=== PATIENT | male | born 1955 | race African-American/Black ===

== ENCOUNTER 2017-01-15 10:43 | Inpatient (IN) ==
[2017-01-15] MEDS ORDERED: D5 1/2 NS 1,000 ML IV SCH (12:00)
[2017-01-15 12:37] LABS: INR 1.05; PROTIME 11.1 Seconds (9.2-11.7)
[2017-01-15] MEDS ORDERED: TYLENOL PO PRN (12:38)
[2017-01-15] MEDS ORDERED: ZOFRAN IV PRN (12:38)
[2017-01-15 12:56] LABS: ALBUMIN 4.1 g/dL (3.5-5.0); CALCIUM 9.9 mg/dL (8.8-10.2); POTASSIUM 3.8 mmol/L (3.5-5.1); TOTAL BILIRUBIN 1.92 mg/dL (0.20-1.00)
[2017-01-15 13:02] LABS: FREE T4 1.66 ng/dL (0.93-1.70)
[2017-01-15] MEDS: D5 1/2 NS 1,000 ML IV SCH (13:14)
--- NOTE | 2017-01-15 13:27 | Diag Imaging Result Document ---
PROCEDURE NAME: CHEST-2 VIEWS - 01/15/2017 TWO VIEWS OF THE CHEST: FINDINGS: There is a pacemaker with leads in the right atrium and ventricle. There are granulomata in the right lower lobe. Compared to 01/11/2017, there has been no significant change. Compared to 10/01/2016, the inspiration is somewhat better. IMPRESSION: Stable chest.
[2017-01-15] MEDS: DUONEB (A & A) INH PRN ×2 (15:33→20:15)
--- NOTE | 2017-01-15 16:13 | HISTORY AND PHYSICAL ---
CHIEF COMPLAINT: Direct admit from Dr. Esteban Muro's office for fluid volume depletion and hypotension. HISTORY OF PRESENT ILLNESS: Mr. Elizondo is a 61-year-old, -[place] male, who has a past medical history of systolic heart failure with an EF of around 20%-30%, history of cirrhosis of the liver, hepatitis C status post curative treatment, alcohol dependence, nicotine dependence; the patient has cut back to a pack per week, chronic kidney disease; last known baseline creatinine around 1.4 x 1.7 and history of paroxysmal atrial fibrillation. Patient is a direct admit from Dr. Muro's office for fluid volume depletion and hypotension. The patient was last admitted to our service back in September 2016 for what they thought was acute cholecystitis, which was ruled out by a HIDA scan. He was to follow up with Dr. Tyson outpatient for an EGD. The patient also reported to the ER on 01/11/2017 after sustaining a fall with right-sided rib pain. He was getting out of the tub when he slipped and fell on his right sign. He was diagnosed with rib fractures and sent home. However, the x-ray showed no injury. Patient reported to Dr. Esteban Muro's office with 2 weeks of feeling dizziness, no appetite, and about a 40 pound weight loss. He states that he has not been eating or drinking much. He states that the most he had been drinking was about half a cup of ice over the last few days. His diet had been bland, occasional grilled chicken, fried chicken, or baked chicken. Other than that, he has not been eating very much. He reported dizziness upon standing and dizziness with sitting up from a lying position and when standing up from a sitting position. Also, he reported no bowel movement for over a week. He also takes a "fluid pill" 1-/2 b.i.d. The patient reports no shortness of breath. No chest pain. No nausea, vomiting, and diarrhea. No palpitations. The patient was also recently seen by Dr. Esteban Muro a few weeks ago. He was edematous, however, now he is completely free of any edema and, as mentioned before, he has had about a 40 pound weight loss in 2 weeks. So, the patient is being directly admitted to [facility] for hypotension and volume depletion. PAST MEDICAL HISTORY: 1. Systolic heart failure with unknown EF of 20%-25%. Followed by Dr. Esteban Muro. 2. Nonischemic cardiomyopathy. 3. Type 2 diabetes. 4. COPD. 5. Hypertension. 6. Hyperlipidemia. 7. History of hepatitis C status post curative treatment. 8. Cirrhosis of the liver. 9. Alcohol dependence in full sustained remission. 10. Nicotine dependence. 11. Chronic kidney disease with a baseline creatinine of 1.4 x 1.7. 12. Paroxysmal atrial fibrillation history. PAST SURGICAL HISTORY: Bilateral hip arthroplasty and permanent pacemaker, AICD placement. SOCIAL HISTORY: The patient smokes 1 pack of cigarettes per day. He quit drinking alcohol 6 years ago. He does have a history of crack cocaine use but quit that around 30-40 years ago. He is . FAMILY HISTORY: Reviewed. Noncontributory. ALLERGIES: Penicillin, JHONATAN inhibitors, and ibuprofen. HOME MEDICATIONS: Have not been reconciled, however, on his last discharge the patient was discharged 1. Spironolactone 25 mg p.o. q.a.m. 2. Prilosec 20 mg p.o. daily. 3. Metformin a 1000 mg p.o. b.i.d. 4. Losartan 100 mg p.o. daily. 5. NovoLog 70/30, 20 units q.a.m. and 15 units at bedtime. 6. Lasix 80 mg p.o. b.i.d. 7. Flonase 2 sprays days daily as needed. 8. Ferrous sulfate 325 mg p.o. daily. 9. Vitamin B12 1000 mcg p.o. daily. 10. Bentyl 10 mg p.o. 4 times a day. However, this was a medication reconciled on 10/05/2016. This may not be a complete list. REVIEW OF SYSTEMS: Ten-point review of systems completely negative except for those mentioned in the HPI. PHYSICAL EXAMINATION: VITAL SIGNS: Have not been taken. GENERAL: This is a pleasant -[place] male, who is lying in bed, in no acute distress. HEENT: Atraumatic, normocephalic. PERRLA. NECK: Supple. Trachea midline. CV: No murmurs, gallops, or rubs noted. S1-S2 appreciated. ABDOMEN: Soft, nontender, nondistended. Positive bowel sounds 4 quadrants. EXTREMITIES: Negative for edema. NEUROLOGIC: Patient is alert and oriented. He follows commands. No focal deficits noted. DIAGNOSTIC DATA WELL LABORATORY DATA: Have been ordered and pending. EKG pending. ASSESSMENT AND PLAN: 1. Hypotension. Continue with D5 half-normal saline at 80 mL/hour. Routine vital signs with strict I's and O's. 2. Volume depletion. Continue with IV fluids. The patient up with assistance. Strict I's and O's. 3. Systolic heart failure with unknown EF of 20%-30% not in exacerbation at this time. 4. Chronic obstructive pulmonary disease. Will do DuoNebs p.r.n. 5. Type 2 diabetes. We will do fingerstick blood sugars as well as place on a sliding scale. 6. Hypertension. The patient is actually hypotensive. We will hold all medications. 7. Hepatitis C history with status post curative treatment per patient report. 8. Cirrhosis of the liver. 9. Alcohol dependence, in full sustained remission. 10. Nicotine dependence. The patient was educated on smoking cessation as well as the means to quit. He is, however, down to a pack per week. 11. Chronic kidney disease with a baseline creatinine of 1.4-1.7. 12. Paroxysmal atrial fibrillation history. Will monitor on telemetry on CIC. 13. Further recommendation to follow physician evaluation, hospital course, laboratory and diagnostic data. Dictated by ALEXX Li for Landon Corrales MD cc: MD Ashley Torrez MD
--- NOTE | 2017-01-15 16:23 | EKG Report ---
Test Performed on : 01/15/2017 1:22:21 PM Test Reason : CAD, hypotension Blood Pressure : / mmHG Vent. Rate : 058 BPM Atrial Rate : 058 BPM P-R Int : 134 ms QRS Dur : 170 ms QT Int : 524 ms P-R-T Axes : 052 -82 077 degrees QTc Int : 514 ms Atrial-sensed ventricular-paced rhythm Biventricular pacemaker detected Abnormal ECG When compared with ECG of 11-JAN-2017 08:47, No significant change was found Confirmed by Amina GREGORY, Jatin Owusu ([id number]) on 01/17/2017 9:53:44 AM
[2017-01-15 17:02] LABS: URINE MICRO REVIEW NEEDED? NO; URINE SOURCE CLEAN CATCH
[2017-01-15 17:06] LABS: BILIRUBIN URINE NEGATIVE (NEGATIVE); BLOOD URINE NEGATIVE (NEGATIVE); COLOR YELLOW; GLUCOSE URINE NEGATIVE (NEGATIVE); LEUKOCYTES URINE NEGATIVE (NEGATIVE); NITRITE URINE NEGATIVE (NEGATIVE); PH URINE 6.5; PROTEIN URINE NEGATIVE (NEGATIVE); SP GRAVITY URINE 1.011; TURBIDITY URINE CLEAR (CLEAR); UR EPITHELIAL CELLS <10 /HPF (<10); URINE BACTERIA NEGATIVE /HPF; URINE RBC <10 /HPF (<10); URINE WBC <10 /HPF (<10); UROBILINOGEN URINE 2 mg/dL (NORMAL)
[2017-01-15] MEDS: HUMULIN R SUBQ SCH ×2 (17:07→20:51)
[2017-01-16] MEDS: D5 1/2 NS 1,000 ML IV SCH ×3 (03:05→21:27)
[2017-01-16] MEDS: DUONEB (A & A) INH PRN ×6 (04:15→23:07)
[2017-01-16] MEDS: NORCO-5 PO PRN ×2 (04:50→18:04)
[2017-01-16] MEDS: PRILOSEC PO SCH ×2 (04:50→06:02)
[2017-01-16 05:36] LABS: HEMOGLOBIN 10.9 g/dL (14.0-18.0); MCH 28.3 PG (27-31); MCV 85.7 FL (81-99); MPV 11.4 FL (7.4-10.4); RBC 3.85 XMIL (4.7-6.1)
[2017-01-16] MEDS: HUMULIN R SUBQ SCH ×4 (06:02→21:16)
[2017-01-16 06:07] LABS: CALCIUM 9.1 mg/dL (8.8-10.2); MAGNESIUM 1.8 mg/dL (1.5-2.7)
[2017-01-16] MEDS: ASPIRIN EC PO SCH (08:31)
[2017-01-16] MEDS: BENTYL PO SCH ×4 (08:31→21:24)
[2017-01-16] MEDS: SYNTHROID PO SCH (08:31)
[2017-01-16] MEDS: PROTONIX PO SCH ×2 (08:31→18:00)
[2017-01-16] MEDS: HEPARIN SUBQ SCH ×2 (10:25→21:24)
--- NOTE | 2017-01-16 11:02 | PROGRESS NOTE ---
DATE: 01/16/2017 SUBJECTIVE: This patient states that he is feeling much better. He is tolerating p.o. He is not complaining of shortness of breath or chest pain. He denies nausea, vomiting, diarrhea, or constipation. OBJECTIVE: Vital Signs: Temperature 97.9 degrees, pulse is 67, respiratory rate 15, O2 saturation 97% on room air and blood pressure 115/52. HEENT: Head normocephalic. No trauma. PERRLA. Neck: Supple. No JVD. Central trachea. Cardiovascular: RRR. No murmurs. Abdomen: Soft, nontender. Mildly distended. Positive bowel sounds. Extremities: No edema. No clubbing. No cyanosis. Neurological: The patient is alert and oriented x3. No focal neurological deficits. LABORATORY: WBC 3.9, hemoglobin 10.9, hematocrit 33, platelets 115,000. Sodium 141, potassium 4, chloride 99, bicarbonate 29. BUN 64, creatinine 2.1, glucose 167, calcium 9.1, magnesium 1.8. ASSESSMENT AND PLAN: 1. Hypotension. Continue with D5 half normal saline, the rate at this moment is 80 mL/hour, probably has to be decreased at some point today; this patient is tolerating p.o. 2. Volume depletion. He looks more hydrated at this moment. Continue with the same management. 3. Systolic heart failure with an ejection fraction of 20% to 30%, not in exacerbation at this time. 4. Chronic obstructive pulmonary disease. Continue with the respiratory treatment. 5. Type 2 diabetes. Continue with sliding scale insulin and pattern of blood sugar. 6. Hypertension. Actually this patient came in with hypotension. Today, the blood pressure is normal. 7. History of hepatitis C status post curative treatment per patient report. 8. Cirrhosis of the liver. Aware. 9. Alcohol dependence. In full sustained remission. 10. Nicotine dependence. This patient has been highly advised against cigarette tobacco use. I will continue with daily cessation education. 11. Rbvfp-sy-eqvnhjw kidney disease, his baseline is around 1.3 to 1.7 and today, the creatinine is 2.1. Continue with the same management. He is getting better. He was admitted and his creatinine was 2.4. 12. Paroxysmal atrial fibrillation, history. Continue with telemetry. CRITICAL CARE TIME: Thirty minutes. cc: Landon Corrales MD
--- NOTE | 2017-01-16 13:09 | PROGRESS NOTE ---
DATE: 01/16/2017 SUBJECTIVE: Mr. Elizondo reports he is feeling much better today. He is tolerating oral intake. No lightheadedness. PHYSICAL EXAMINATION: He is afebrile. Heart rate is 60. Blood pressures have been in the 100s to 110s lately. He had some 90s reported yesterday in the systolic. His I's and O's are positive 1.15 L. General: No acute distress. Cardiovascular: He is in a regular rate and rhythm. He has no murmurs. He has no lower extremity edema. Chest: Clear bilaterally. He has no increased work of breathing. Abdomen: Soft and nontender. PERTINENT DATA: His white count is 3.9, hematocrit 33, platelet count is 115,000. Sodium 141, potassium 4, BUN 64, creatinine 2.1. Mag level is 1.8. ASSESSMENT: 1. Volume depletion. 2. Chronic systolic heart failure. Not currently in an exacerbation. PLAN: Patient seems to be doing much better. His blood pressure is much better. He was significantly volume overloaded from excessive use of diuretic as well as medications in which he was unclear exactly what he was taking as he had different medication lists at different physician's offices. I would continue him with fluids and hopefully before the weekend is over we can get him home. cc: Esteban Muro MD
[2017-01-17 04:57] LABS: MANUAL DIFF NEEDED? NO
[2017-01-17 05:00] LABS: BASO% 0.5 % (0.0-0.8); EOS# 0.05 X1000 (0.0-0.7); EOS% 1.2 % (0.0-10.0); HEMATOCRIT 30.9 % (42.0-52.0); HEMOGLOBIN 10.4 g/dL (14.0-18.0); LYMPH# 1.13 X1000 (1.2-3.4); LYMPH% 26.2 % (20.5-51.1); MCH 28.6 PG (27-31); MCHC 33.7 g/dL (33-37); MCV 84.9 FL (81-99); MONO# 0.55 X1000 (0.11-0.59); MONO% 12.7 % (1.7-9.3); MPV 10.4 FL (7.4-10.4); NEUT% 59.4 % (42.2-75.2); PLT 109 X1000 (130-400); RBC 3.64 XMIL (4.7-6.1)
[2017-01-17 05:23] LABS: CALCIUM 8.7 mg/dL (8.8-10.2); POTASSIUM 4.2 mmol/L (3.5-5.1)
[2017-01-17] MEDS: HUMULIN R SUBQ SCH ×4 (06:10→22:17)
[2017-01-17] MEDS: SYNTHROID PO SCH (06:19)
[2017-01-17] MEDS: PROTONIX PO SCH ×2 (06:19→18:50)
[2017-01-17] MEDS: DUONEB (A & A) INH PRN ×3 (07:46→22:02)
[2017-01-17] MEDS: D5 1/2 NS 1,000 ML IV SCH ×2 (08:35→22:22)
[2017-01-17] MEDS: BENTYL PO SCH ×4 (08:36→20:16)
[2017-01-17] MEDS: ASPIRIN EC PO SCH (08:36)
[2017-01-17] MEDS: HEPARIN SUBQ SCH ×2 (08:38→20:15)
--- NOTE | 2017-01-17 12:10 | PROGRESS NOTE ---
DATE: 01/17/2017 SUBJECTIVE: The patient notes he feels tremendously better this morning. States he is up sitting in a chair. He has not actually walked out in caba but he has been walking around some. Denies any current chest pain, palpitations. Denies any fevers or chills. Denies any GI or issues otherwise. States he is tired but is much better than he had been in the past. OBJECTIVE: Vital Signs: Temperature 98, pulse 67,respiratory rate 18, blood pressure 107/57. Saturating 100% on room air. General: Patient is awake, alert. He is sitting in a chair. He is pleasant to talk with. Speech is intact. Memory is normal. He is in no current distress. HEENT: Normocephalic, atraumatic. Neck: Supple. Cardiovascular: Regular rate. Chest: Relatively clear. No apparent crackles. No wheezing. Abdomen: Soft. Extremities: Moves all extremities. Neurologic: No changes. LABORATORY DATA: CBC essentially unchanged. BUN 47 creatinine 1.7. ASSESSMENT: 1. Hypotension. Blood pressures are better. Currently 107/57. 2. Volume depletion. Continues to improve. BUN has decreased from 69-47 and creatinine is improved from 2.4 down to 1.7. 3. Diastolic congestive heart failure with an ejection fraction of 20-30%. 4. Chronic obstructive pulmonary disease. Stable. 5. Type 2 diabetes. 6. Hypertension. The patient currently is in hypotension. 7. Chronic alcohol dependence patient is currently in remission states he is not drinking. 8. Chronic tobacco abuse. 9. Acute on chronic kidney disease. Creatinine is almost back to his baseline of 1.3-1.7. He is currently down to 1.7 today. 10. Paroxysmal atrial fibrillation. PLAN: We will continue to hold the patient's Lasix, Coreg and Entresto secondary to his hypotension. We will continue to hold his metformin secondary to his acute renal insufficiency. He is on a sliding scale currently for his diabetes. Blood sugars still remain in the low 120s. Therefore we will not restart his insulin either. We will transition patient to a regular floor so that he can easier ambulate. We will continue current labs. cc: Bautista Robles MD
[2017-01-17] MEDS: NORCO-5 PO PRN (18:50)
[2017-01-18] MEDS: PROTONIX PO SCH ×2 (06:04→18:16)
[2017-01-18] MEDS: SYNTHROID PO SCH (06:04)
[2017-01-18] MEDS: HUMULIN R SUBQ SCH ×4 (06:24→22:20)
[2017-01-18] MEDS: HEPARIN SUBQ SCH ×2 (09:20→22:14)
[2017-01-18] MEDS: BENTYL PO SCH ×4 (09:20→22:14)
[2017-01-18] MEDS: ASPIRIN EC PO SCH (09:20)
[2017-01-18] MEDS: NORCO-5 PO PRN ×3 (09:26→23:27)
[2017-01-18 09:29] LABS: ALBUMIN 3.2 g/dL (3.5-5.0); CALCIUM 9.1 mg/dL (8.8-10.2); POTASSIUM 4.9 mmol/L (3.5-5.1); TOTAL BILIRUBIN 1.14 mg/dL (0.20-1.00); TOTAL PROTEIN 8.2 g/dL (6.3-8.3)
[2017-01-18] MEDS: DUONEB (A & A) INH PRN ×2 (09:41→15:54)
--- NOTE | 2017-01-18 10:16 | PROGRESS NOTE ---
DATE: 01/18/2017 SUBJECTIVE: Patient notes he is feeling much better. He is ambulating in the caba. He is having no real shortness of breath. States he feels better than he did at home. Denies any chest pain or palpitations. OBJECTIVE: Vital signs: Temperature 97.6, pulse 78, respiratory 20, BP 112/60, O2 saturation 98% on room air. General: Patient is awake, alert. He is sitting in a chair. He is in no distress. He is pleasant to talk with. Speech is regular. Memory is intact. Neck: Supple. CV: Regular rate. Chest: Clear and nonlabored. Extremities: Moves all extremities. No edema. No clubbing. Neurologic: No changes. LABS: Pending. ASSESSMENT: 1. Hypotension. Blood pressure is 112-118 systolic, although he has not restarted his home Lasix, Coreg, or Entresto. 2. Volume depletion. Has improved. We will saline lock him this morning. 3. Systolic heart failure with an ejection fraction of 20 to 30%. Again, he has not restarted his Entresto or Coreg or Lasix secondary to volume depletion and hypotension. 4. Hepatitis C. 5. Cirrhosis. 6. Chronic alcohol dependence, although currently not drinking. 7. Chronic nicotine dependence. Again, discussed with the patient the perils of smoking. 8. Acute on chronic renal disease. He appears much closer to his baseline kidney disease. Labs are pending this morning. PLAN: The patient's labs are pending this morning. We will saline lock this a.m. after talking to cardiology. Hopefully if his labs are normal he can be discharged home later this afternoon. cc: Bautista Robles MD
[2017-01-18] MEDS: D5 1/2 NS 1,000 ML IV SCH ×2 (10:34→23:24)
[2017-01-19] MEDS: HUMULIN R SUBQ SCH ×2 (06:38→14:59)
[2017-01-19] MEDS: SYNTHROID PO SCH (06:39)
[2017-01-19] MEDS: PROTONIX PO SCH (06:39)
[2017-01-19 07:20] LABS: MANUAL DIFF NEEDED? NO
[2017-01-19 07:25] LABS: BASO% 0.3 % (0.0-0.8); EOS# 0.05 X1000 (0.0-0.7); EOS% 1.5 % (0.0-10.0); HEMATOCRIT 30.2 % (42.0-52.0); LYMPH# 0.88 X1000 (1.2-3.4); LYMPH% 26.9 % (20.5-51.1); MCH 28.2 PG (27-31); MCHC 33.1 g/dL (33-37); MCV 85.3 FL (81-99); MONO# 0.44 X1000 (0.11-0.59); MONO% 13.5 % (1.7-9.3); MPV 11.2 FL (7.4-10.4); NEUT% 57.8 % (42.2-75.2); PLT 100 X1000 (130-400); RBC 3.54 XMIL (4.7-6.1)
[2017-01-19] MEDS: DUONEB (A & A) INH PRN ×3 (07:29→15:26)
[2017-01-19 07:46] LABS: AGAP 9; BUN 29 mg/dL (8-22); CALCIUM 9.3 mg/dL (8.8-10.2); CHLORIDE 104 mmol/L (98-107); COSMO 282; POTASSIUM 4.7 mmol/L (3.5-5.1); SODIUM 138 mmol/L (136-145); TCO2 25 mmol/L (25-35)
[2017-01-19 08:18] VITALS: BP 115/60
[2017-01-19] MEDS: HEPARIN SUBQ SCH (11:15)
[2017-01-19] MEDS: ASPIRIN EC PO SCH (11:15)
[2017-01-19] MEDS: BENTYL PO SCH ×2 (11:15→14:59)
--- NOTE | 2017-01-20 00:04 | DISCHARGE SUMMARY ---
ADMISSION DATE: 01/15/2017 DISCHARGE DATE: 01/19/2017 FINAL DISCHARGE DIAGNOSES: 1. Dehydration. 2. Acute kidney injury. 3. Chronic systolic congestive heart failure, not in exacerbation. 4. Anemia of chronic disease. 5. History of hepatitis C. 6. Liver cirrhosis. 7. Nicotine dependence. CONSULTATIONS REQUESTED DURING HOSPITAL STAY: Cardiology consultation with Dr. Muro. HOSPITAL COURSE: Mr. Elizondo is a 61-year-old male with a history of multiple medical problems, who initially presented to the ER with a chief complaint of dehydration and low blood pressure. The patient was sent from Dr. Esteban Muro's office after the patient was noted to be dehydrated in the clinic. The patient reports that he had been taking his Lasix twice a day. The patient was admitted to the hospitalist service. He was noted to have a creatinine of 2.4, with a BUN of 69. He was also hypotensive, with a blood pressure of 93/56. The patient was started on normal saline and his Is and Os were monitored closely. With the initiation of saline, the patient's blood pressure improved, as well as his renal function. The patient was also seen by Dr. Muro, and all of his cardiac medications were on hold during the hospitalization. The patient continued to improve clinically, and it was recommended that he be restarted back on Entresto. DISCHARGE MEDICATIONS: 1. Metformin 1000 mg p.o. twice a day. 2. NovoLog 70/30, 18 units subcutaneous at bedtime. 3. NovoLog mix 70/30 twenty units subcutaneous every morning. 4. Synthroid 25 mcg oral daily. 5. Aspirin 81 mg p.o. daily. 6. Vitamin D3 2000 units oral daily. 7. Entresto 1 tab oral twice a day. 8. Protonix 40 mg p.o. twice a day. 9. Vitamin B12 1000 mcg oral daily. 10. Atrovent nebulizer 4 times a day p.r.n. for shortness of breath. 11. Bentyl 10 mg p.o. 4 times a day. DISCHARGE DIET: Low-sodium diet. ACTIVITY: As tolerated. FOLLOWUP INSTRUCTIONS: The patient will need to follow up with Dr. Muro, as scheduled by his clinic. cc: Simona Garcia MD
[2017-01-20] MEDS ORDERED: ENTRESTO 24 MG-26 MG TABLET PO SCH (09:00)
== END 2017-01-19 15:54 | disposition home or self-care (01) ==
LOC: SUATTDRO 10:43 → DIRADM 10:43 → 3S 11:36 → 3N 01-17 18:21
PROVIDERS: ATTEND Internal Medicine

== ENCOUNTER 2017-06-19 16:35 | Inpatient (IN) ==
--- NOTE | 2017-06-19 17:18 | ED EKG INTERP ---
This chart was entered by Isis Pineda Scribe, acting as scribe for Brent Ellis MD. EKG Interpretation - EKG Time of EKG reading by physician:: 16:50 EKG Read and Signed by:: Brent Ellis EKG Interpretation (*Must complete 3 of following elements*): Abnormal ( inferior infarct, age undetermined; possible anterolateral infarct, age undetermined) Rate: 81 Rhythm: paced rhythm Comments: left axis deviation; nonspecific intraventricular block Attestation - Physician/ THIAGO Attestation Patient care was provided by Advanced Practice Provider:: No The physician spent face to face time with patient:: Yes Advanced Practice Provider documentation review:: Supervising physician onsite and consulted in the evaluation and care of this patient. The physician did have a face to face encounter with the patient. This chart was documented by the indicated scribe, (Isis Pineda Scribe) and accurately reflects the services I performed and decisions made by me, Brent Ellis MD, as attested by the provider's signature.
[2017-06-19 17:37] LABS: MANUAL DIFF NEEDED? NO
[2017-06-19 17:42] LABS: BASO% 0.2 % (0.0-0.8); EOS# 0.09 X1000 (0.0-0.7); EOS% 1.7 % (0.0-10.0); HEMATOCRIT 28.3 % (42.0-52.0); HEMOGLOBIN 9.4 g/dL (14.0-18.0); IMM GRAN# 0.02 X1000 (0.0-0.04); IMM GRAN% 0.4 % (0.0-0.5); LYMPH# 1.05 X1000 (1.2-3.4); MCH 29.6 PG (27-31); MCHC 33.2 g/dL (33-37); MONO# 0.33 X1000 (0.11-0.59); MONO% 6.3 % (1.7-9.3); MPV 12.1 FL (7.4-10.4); NEUT% 71.4 % (42.2-75.2); PLT 135 X1000 (130-400); RBC 3.18 XMIL (4.7-6.1)
--- NOTE | 2017-06-19 17:45 | Diag Imaging Result Doc PS360 ---
EXAM: CHEST-2 VIEWS INDICATION: CP TECHNIQUE: One view COMPARISON: 01/15/2017 FINDINGS: There is evidence of prior granulomatous disease, stable. The lungs are grossly clear. There is no discrete pleural fluid collection or pneumothorax. There is stable cardiomegaly and a stable implanted defibrillator/pacemaker. IMPRESSION: Stable cardiomegaly. No definite acute chest pathology. Electronically signed by Slim Waldron 06/19/2017 5:43 PM
[2017-06-19 17:54] LABS: INR 1.17; PROTIME 12.4 Seconds (9.2-11.7); PTT 25.2 Seconds (22.0-36.0)
[2017-06-19 18:15] LABS: ALBUMIN 4.3 g/dL (3.5-5.0); CALCIUM 8.9 mg/dL (8.8-10.2); MAGNESIUM 1.7 mg/dL (1.5-2.7); TOTAL BILIRUBIN 1.32 mg/dL (0.20-1.00); TOTAL PROTEIN 7.5 g/dL (6.3-8.3)
[2017-06-19] MEDS ORDERED: LASIX IV ONE (18:43)
[2017-06-19] MEDS ORDERED: LASIX ONE (18:44)
--- NOTE | 2017-06-19 21:18 | PROVIDER DOCUMENTATION ---
This chart was entered by Ashleigh Flaherty Scribe, acting as scribe for Rohan Aragon DO. HPI-Respiratory General - General Chief Complaint: Chest Pain Stated Complaint: CP, SOB Time Seen by Provider: 06/19/17 16:53 Source: patient Allergies/Adverse Reactions: Patient Allergies Allergy/AdvReac Type Severity Reaction Status Date / Time Penicillins Allergy Severe SHORTNESS Verified 01/11/17 09:29 OF BREATH JHONATAN Inhibitors AdvReac Intermediate COUGH Verified 01/11/17 09:29 ibuprofen AdvReac Intermediate HIVES Verified 01/11/17 09:29 Home Medications: Home Medication List Medication Instructions Recorded Confirmed Last Taken Type Metformin HCl 1,000 mg PO BID 05/27/15 01/15/17 01/15/17 07:00 History 1000 mg Insulin Aspart Prot/Insuln Asp 18 unit SQ HS 08/09/15 01/15/17 01/14/17 21:00 History [Novolog Mix 70-30 Vial] 18 units Insulin Aspart Prot/Insuln Asp 20 unit SQ QAM 08/09/15 01/15/17 01/15/17 07:00 History [Novolog Mix 70-30 Vial] 20 units Aspirin [Aspir-Low] 81 mg PO DAILY 01/11/17 01/15/17 01/15/17 History 81 mg Levothyroxine [Synthroid] 25 mcg PO DAILY 01/11/17 01/15/17 Unknown History Cholecalciferol (Vit D3) [Vitamin 2,000 unit PO DAILY 01/15/17 01/15/17 07:00 History D3] 2,000 units Cyanocobalamin (Vitamin B-12) 1,000 mcg PO DAILY 01/15/17 01/15/17 01/15/17 History [Cyanocobalamin] 1000 mcg Dicyclomine [Bentyl] 10 mg PO 4XDAY 01/15/17 01/15/17 01/15/17 07:00 History 10 mg Ipratropium [place] Neb [Atrovent 1 dose NEB 4XDAY PRN MDD 4 01/15/17 01/15/17 01/14/17 19:00 History Neb] 1 Dose Nitroglycerin Sl [Nitroglycerin] 0.4 mg SL PRN PRN 01/15/17 01/16/17 Unknown History Pantoprazole Sodium 40 mg PO BID 01/15/17 01/15/17 01/15/17 07:00 History 40 mg Sacubitril/Valsartan [Entresto 24 1 each PO BID 01/15/17 01/15/17 01/15/17 07: 00 History mg-26 mg Tablet] 1 tab - History of Present Illness-Resp Nature of Presenting Problem: Patient is a 61 year old male who presents in the ED with complaints of shortness of breath and cough. Patient states he has had shortness of breath and a cough with production of a pink/frothy/blood streaked sputum, and states he began having chest pain/right shoulder pain yesterday. He reports history of CHF, COPD, hypertension, and reports he smokes 1/2PPD. Denies any other symptoms. Quality of Pain: reports: sharp Severity in ED: reports: mild, moderate Onset/Duration: reports: gradual, 1 week ago Timing: reports: still present, changing over time, getting worse Context: denies: recent foreign travel, insect bite (possible tick), recent chemotherapy, multiple patients with similar complaints, recent URI, out of meds , sports/exercise, aspiration/choking, other Exposure: denies: unknown cause, allergen exposure, enviromental allergen exposure, common food allergen exposure, illness exposure, irritant gases exposure, new medication, mold exposure, smoke exposure, toxic exposure, other Cough Quality/Degree: reports: moderate, productive cough, sputum (pink/frothy) , blood streaked sputum Episode Frequency: chronic episodes Current Respiratory Medication Therapy: Initiated see nurses note Modifying Factors: improves with: nothing Associated Symptoms: reports: chest pain/soreness, cough, shortness of breath, short of breath Similar Symptoms Previously?: No Recently seen or treated by another doctor?: No Review of Systems - Adult - REVIEW OF SYSTEMS - ADULT Constitutional: reports: no symptoms reported Eyes: reports: no symptoms reported Ears, Nose, Mouth & Throat: reports: no symptoms reported Cardiovascular: reports: see HPI, chest pain Respiratory: reports: see HPI, cough, shortness of breath Gastrointestinal: reports: no symptoms reported Genitourinary: reports: no symptoms reported Musculoskeletal: reports: no symptoms reported Integumentary: reports: no symptoms reported Neurological: reports: no symptoms reported Psychiatric: reports: no symptoms reported Endocrine: reports: no symptoms reported Hematologic/Lymphatic: reports: no symptoms reported Allergic/Immunologic: reports: no symptoms reported All Other Systems: Reviewed and Negative Past History - Adult - PAST MEDICAL HISTORY-ADULT Review of Records: reports: Nursing Assessment Review, Medications Reviewed Major Childhood Illnesses: reports: denies history Cardiovascular: reports: CHF, HTN, hyperlipidemia Respiratory: reports: asthma, COPD Gastrointestinal: reports: hepatitis (c) Obstetrical/Gynecological: reports: denies history Genitourinary: reports: denies history Musculoskeletal: reports: denies history Neurological: reports: dementia Endocrine/Immune: reports: Diabetes, thyroid disorder Other Conditions: reports: denies history - PRIOR SURGERIES/PROCEDURES Surgical/Procedure History: reports: pacemaker, joint replacement (right hip, left hip) - IMMUNIZATION STATUS Childhood Immunizations: See Nurse Assessment Flu Vaccine: See Nurse Assessment - FAMILY HISTORY Family History: reviewed, not pertinent - SOCIAL HISTORY Smoking: cigarettes, less than 1 pack/day Provider spent 3-5 mins advising pt. on dangers of tobacco.: Discussed manners to quit use, and f/u contacts for add'l counseling. Substance Use: none/never Alcohol Use Frequency: never Living Situation: family Physical Exam-General - PHYSICAL EXAM-ADULT Initial Vital Signs Reviewed: Yes - CONSTITUTIONAL General Appearance: alert, no apparent distress - EYES Eyes: PERRL/EOMI, pink conjunctivae - HEAD, EARS, NOSE, MOUTH & THROAT HENMT: normocephalic/atraumatic, moist mucous membranes - NECK Neck: full range of motion, supple - RESPIRATORY Respiratory: chest non-tender, no pleuratic chest pain, no respiratory distress , no accessory muscle use, rales (bilateral lower lobes) - CARDIOVASCULAR Cardiovascular: regular rate, rhythm, no edema, no gallop, no JVD, no murmur - GASTROINTESTINAL (ABDOMEN) Abdominal Exam: normal bowel sounds, non tender, soft, no organomegaly, no pulsatile mass - LYMPHATIC Lymphatic: no adenopathy - MUSCULOSKELETAL Back Exam: normal inspection, no CVA tenderness, no vertebral tenderness Extremity: normal range of motion, non-tender, no pedal edema - SKIN Integumentary: normal color, normal turgor, warm/dry - NEUROLOGIC Neurologic: grossly normal, no motor/sensory deficits - PSYCHIATRIC Psych/Mental Status: normal mood/affect, oriented x 3 Progress - PLAN OF CARE/RESULTS Progress/Plan/Lab Results: Vital Signs - 8 hr 06/19/17 16:48 06/19/17 20:02 Temperature 98.3 F Pulse Rate 81 83 Respiratory Rate 24 21 Blood Pressure 130/70 120/83 O2 Sat by Pulse Oximetry 100 98 Laboratory Results - last 24 hr 06/19/17 06/19/17 06/19/17 17:08 17:08 17:08 WBC 5.25 RBC 3.18 L Hgb 9.4 L Hct 28.3 L MCV 89.0 MCH 29.6 MCHC 33.2 RDW Std Deviation 13.6 Plt Count 135 MPV 12.1 H Immature Gran % (Auto) 0.4 Neut % (Auto) 71.4 Lymph % (Auto) 20.0 L [place] % (Auto) 6.3 Eos % (Auto) 1.7 Baso % (Auto) 0.2 Immature Gran # (Auto) 0.02 Neut # (Auto) 3.75 Lymph # (Auto) 1.05 L [place] # (Auto) 0.33 Eos # (Auto) 0.09 Baso # (Auto) 0.01 PT INR PTT (Actin FS) D-Dimer 3.29 H Sodium 141 Potassium 4.0 Chloride 105 Carbon Dioxide 23 L Anion Gap 13 BUN 31 H Creatinine 1.8 H Estimated GFR/1.73 m2 47 BUN/Creatinine Ratio 17 Glucose 102 Calculated Osmolality 288 Calcium 8.9 Magnesium 1.7 Total Bilirubin 1.32 H AST 19 ALT 10 Alkaline Phosphatase 107 Creatine Kinase 137 Troponin T [id number] Pept Total Protein 7.5 Albumin 4.3 Globulin 3.2 Albumin/Globulin Ratio 1.3 06/19/17 06/19/17 06/19/17 17:08 17:08 17:08 WBC RBC Hgb Hct MCV MCH MCHC RDW Std Deviation Plt Count MPV Immature Gran % (Auto) Neut % (Auto) Lymph % (Auto) [place] % (Auto) Eos % (Auto) Baso % (Auto) Immature Gran # (Auto) Neut # (Auto) Lymph # (Auto) [place] # (Auto) Eos # (Auto) Baso # (Auto) PT 12.4 H INR 1.17 PTT (Actin FS) 25.2 D-Dimer Sodium Potassium Chloride Carbon Dioxide Anion Gap BUN Creatinine Estimated GFR/1.73 m2 BUN/Creatinine Ratio Glucose Calculated Osmolality Calcium Magnesium Total Bilirubin AST ALT Alkaline Phosphatase Creatine Kinase Troponin T < 0.010 Ozl-B-Tzgeokeshep Pept 17094 H Total Protein Albumin Globulin Albumin/Globulin Ratio Orders Category Date Time Status Cardiac Monitoring DIRECTED Care 06/19/17 17:11 Active Saline Loc NOW Care 06/19/17 17:11 Active CHEST-2 VIEWS [RAD] Stat Exams 06/19/17 17:11 Completed AFB SMEAR [HH] Stat Lab 06/19/17 17:20 Ordered CBC WITH ELECTRONIC DIFF [HEME] Stat Lab 06/19/17 17:08 Completed CK PROFILE [SP CHEM] Stat Lab 06/19/17 17:08 Completed COMPREHENSIVE METABOLIC PANEL [CHEM] Stat Lab 06/19/17 17:08 Completed D-DIMER [CHEM] Stat Lab 06/19/17 17:08 Completed MAGNESIUM [CHEM] Stat Lab 06/19/17 17:08 Completed PRO B-NATRIURETIC PEPTIDE Stat Lab 06/19/17 17:08 Completed PROTIME WITH INR [COAG] Stat Lab 06/19/17 17:08 Completed PTT [COAG] Stat Lab 06/19/17 17:08 Completed SPUTUM CULTURE WITH GRAM STAIN [RM] Routine Lab 06/19/17 19:15 Received TROPONIN T Stat Lab 06/19/17 17:08 Completed Furosemide [Lasix] Med 06/19/17 18:44 Discontinued 100 mg .ROUTE .STK-MED ONE Furosemide [Lasix] Med 06/19/17 18:43 Discontinued 80 mg IV NOW ONE EKG [EKG] Stat Ther 06/19/17 17:11 Ordered Spoke with the hospitalist and he has accepted the admission. Result Diagrams: 06/19/17 17:08 06/19/17 17:08 - REASSESSMENT Reassessment #1 Time Reassessed: 21:15 (SPOKE WITH THE HOSPITALIST AND HE HAS ACCEPTED THE ADMISSION.) - XRAY 1 XRAY Study: Chest Impression: Normal XRAY Interpretation: stable cardiomegaly. no definite acute pathology. Departure - Departure Date of Disposition Decision: 06/19/17 Time of Disposition Decision: 21:16 DIAGNOSIS: CHF exacerbation Qualifiers: Congestive heart failure type: combined Qualified Code(s): I50.43 - Acute on chronic combined systolic (congestive) and diastolic (congestive) heart failure Disposition: ADMITTED INPATIENT 09 Certified Medical Emergency: Emergent Condition: Stable Referrals and Follow-Ups: Esteban Muro MD [Primary Care Provider] - - Critical Care Note This patient required my direct & personal management of CC.: No Attestation - Physician/ THIAGO Attestation Patient care was provided by Advanced Practice Provider:: No The physician spent face to face time with patient:: Yes Advanced Practice Provider documentation review:: Supervising physician onsite and consulted in the evaluation and care of this patient. The physician did have a face to face encounter with the patient. This chart was documented by the indicated scribe, (Ashleigh Flaherty Scribe) and accurately reflects the services I performed and decisions made by me, Rohan Aragon DO, as attested by the provider's signature.
[2017-06-19] MEDS ORDERED: SOLU-MEDROL IV ONE (21:55)
[2017-06-19 22:06] LABS: BE -1.2 mmoll (-2.0-2.0); BLOOD TYPE VENOUS; PCO2(98.6) 39 mmHg (40-60); PO2(98.6) 123 mmHg (30-55); SAMPLE BLOOD; SAO2 99.3 % (40.0-85.0); pH(98.6) 7.39 (7.32-7.43)
--- NOTE | 2017-06-19 22:39 | HISTORY AND PHYSICAL ---
PRIMARY CARE PROVIDER: Ashley Velasquez. TIE IN MACHINE OPERATOR: Dr. Esteban Muro. CHIEF COMPLAINT: Chest pain, shortness of breath. HISTORY OF PRESENT ILLNESS: Mr. Elizondo is a 61-year-old with unknown ejection fraction of 20-30% with chronic systolic heart failure, history of cirrhosis of the liver, hepatitis C status post curative treatment, long-term alcohol dependence however he has been sober for the past 5 years and continued nicotine dependence, he has cut back to around half of a pack a day and chronic kidney disease with a baseline creatinine around 1.5. He also has a history of paroxysmal atrial fibrillation with a chronic pacemaker with AICD. The patient stated for the last couple of days he has had increased shortness of breath. He stated he had chest pain but what he describes is more shortness of breath. He states that the pain was a smothering type pain have where he felt just maybe heaviness in his chest. He did not rate the pain on a scale 1-10 he just said that it was very hard to breathe. He stated that he was at a ball game with his kids and they were mowing the grass. He started having problems after this. In the emergency room a chest x-ray was obtained which did not show any definite acute chest pathology. The lungs were mostly clear. No pleural effusion or pneumothorax. He does have cardiomegaly and a stable pacemaker as well as chronic changes from COPD. EKG completed in the emergency room showed a paced rhythm with left axis deviation. Laboratory data was close to the patient 's baseline with a creatinine of 1.8, a proBNP elevated at 14,714. He did have a D-dimer elevated at 3.29 however looking back the patient appears to have a chronically elevated D-dimer all the way back to 2012. It has been elevated 2.57 or greater. The patient will be admitted inpatient for further evaluation and treatment. PAST MEDICAL HISTORY: 1. Diabetes type 2. 2. Nonischemic cardiomyopathy. 3. Systolic heart failure with a ejection fraction around 20-30%. 4. COPD with continued tobacco use. 5. Hypertension. 6. Hyperlipidemia. 7. History of hepatitis C status post curative treatment. 8. Cirrhosis of the liver secondary to alcohol dependence. 9. Nicotine dependence. 10. Chronic kidney disease stage 3. 11. Paroxysmal atrial fibrillation status post pacemaker implantation. SURGICAL HISTORY: 1. Bilateral hip arthroplasty. 2. Permanent pacemaker with AICD. SOCIAL HISTORY: The patient smokes half of a pack of cigarettes per day. Quit drinking alcohol 5-6 years ago. Does have a history of crack cocaine use however he quit roughly 30-40 years ago. FAMILY HISTORY: Mother had diabetes, hypertension and of kidney cancer at age 66, father had diabetes and at 82 of unknown causes. ALLERGIES: Penicillin, JHONATAN inhibitors and ibuprofen. HOME MEDICATION: List is not been reconciled. Order was placed for nursing to reconcile home medications in the computer. REVIEW OF SYSTEMS: Fourteen point review of systems conducted with the patient. Pertinent positives listed above in the HPI. All other systems reviewed and found to be negative. PHYSICAL EXAMINATION: VITAL SIGNS: Temperature 98.3 degrees, pulse 91, respirations 20, blood pressure 125/95, oxygen saturation 98-100% on 2 L nasal cannula. GENERAL: Pleasant 61-year-old male lying in the ER stretcher in no acute distress. Answers all questions appropriately. HEENT: Head is atraumatic, normocephalic. Pupils equal, round, reactive to light. Extraocular eye movement intact. Sclerae is mildly jaundiced, conjunctivae is pale. Oral mucosa is moist. NECK: Supple. No JVD. No thyromegaly. No hepatojugular reflex noted. No carotid bruit on auscultation. CARDIAC: S1-S2 appreciated. No murmurs, gallops, or rubs. LUNGS: Decreased bilateral bases, expiratory wheezing noted throughout the lung morris. No rhonchi, no rales. Symmetrical rise and fall respiration. ABDOMEN: Protuberant, soft, nondistended, nontender. Bowel sounds present in all 4 quadrants. Normoactive. No pulsatile mass. No organomegaly. EXTREMITIES: No clubbing, cyanosis, or edema. 2+ pedal pulses bilaterally. GENITOURINARY: The patient voids otherwise deferred. No bladder distention. NEUROLOGIC: Alert and oriented x3. No focal motor deficits noted otherwise nonfocal examination. SKIN: Appropriate for race, warm, dry and intact. No acute lesions or rash. DIAGNOSTIC DATA: Chest x-ray shows chronic COPD changes with cardiomegaly and intact pacemaker. EKG shows paced rhythm with left axis deviation, rate in the 80s. LABORATORY DATA: WBC 5.25, hemoglobin 9.4, hematocrit 28.3, platelet count 135, 000. PT 12.4, INR 1.17, D-dimer 3.29, sodium 141, potassium 4, chloride 105, carbon dioxide 23, BUN 31, creatinine 1.8, glucose 102, CK 137, troponin less than 0.010, proBNP 14,714. ASSESSMENT AND PLAN: 1. Chronic obstructive pulmonary disease with exacerbation. Will give Solu- Medrol 125 mg in the emergency room. Start duo nebs q.2 hours for wheezing and q.6 hours scheduled. Nursing to reconcile home medications. Will start other medications when appropriate. Will add Singulair 10 mg p.o. at bedtime. 2. Congestive heart failure with chronic systolic heart failure with an ejection fraction between 20 and 30%, unknown when his last echocardiogram was, will consult Dr. Esteban Muro, order echocardiogram in a.m. 80 mg of Lasix was given in the emergency room. Patient appears to take 80 mg of Lasix by mouth b.i.d., will restart this in the morning. 3. Diabetes mellitus type 2. Will hold metformin during his hospital course, will start fingerstick blood sugars q.a.c. and at bedtime, will low-dose sliding scale insulin, check hemoglobin A1c. 4. Chronic kidney disease stage 3. Patient's creatinine is around baseline which appears to be a 1.5 to 1.7. Will recheck laboratory data in a.m. 5. Paroxysmal atrial fibrillation status post pacemaker and implantable cardioverter defibrillator implantation aware. Will continue home medications when they have been reconciled as well as consulting Dr. Esteban Muro. 6. Hypertension. Patient is normotensive at this time. Will monitor. Will restart home medications when appropriate. 7. Nicotine dependence. Smoking cessation was gone over with the patient. He states that he has cut back and he does want to quit. However after smoking for 40 years it is hard to stop. He cannot use NicoDerm patches related to allergy to the adhesive. Will order NicoDerm gum during his hospital course. Further recommendations per patient clinical course. Dictated by ALEXX Eden for Marc Moreno MD Patient seen and examined. I have personally seen and did physicial exam. I agree with above assessment and plan. Dr. Moreno cc: MD Marc Anderson MD [facility]
[2017-06-19] MEDS ORDERED: NICOTINE GUM BUCCAL PRN (23:23)
[2017-06-19] MEDS ORDERED: ATROVENT NEB INH PRN (23:23)
[2017-06-19] MEDS ORDERED: NITROGLYCERIN SL PRN (23:23)
[2017-06-19] MEDS ORDERED: SINGULAIR PO ONE (23:23)
[2017-06-19] MEDS ORDERED: DUONEB (A & A) INH PRN (23:23)
[2017-06-19] MEDS ORDERED: TYLENOL PO PRN (23:23)
[2017-06-19] MEDS ORDERED: ZOFRAN IV PRN (23:23)
[2017-06-20 00:18] LABS: HEMOGLOBIN A1C 4.5 % (4.8-6.0)
[2017-06-20 00:21] LABS: CK PROFILE 129 U/L (24-204); HDL 39 mg/dL (35-55); LDL 107 mg/dL; TRIGLYCERIDES 61 mg/dL (39-160); VLDL 12 mg/dL
[2017-06-20] MEDS ORDERED: PNEUMOVAX 23 IM ONE (01:36)
[2017-06-20] MEDS ORDERED: FLUZONE QUAD 2017-2018 SYRINGE IM ONE (01:37)
[2017-06-20] MEDS: DUONEB (A & A) INH SCH ×4 (03:47→22:15)
[2017-06-20] MEDS: HEPARIN SUBQ SCH ×3 (07:00→22:24)
[2017-06-20] MEDS: PROTONIX PO SCH (07:00)
[2017-06-20 07:05] LABS: BASO% 0.2 % (0.0-0.8); EOS# 0.01 X1000 (0.0-0.7); EOS% 0.2 % (0.0-10.0); HEMATOCRIT 30.9 % (42.0-52.0); HEMOGLOBIN 10.3 g/dL (14.0-18.0); LYMPH# 0.33 X1000 (1.2-3.4); LYMPH% 6.7 % (20.5-51.1); MANUAL DIFF NEEDED? YES; MCH 29.8 PG (27-31); MCHC 33.3 g/dL (33-37); MCV 89.3 FL (81-99); MONO# 0.08 X1000 (0.11-0.59); MONO% 1.6 % (1.7-9.3); MPV 11.9 FL (7.4-10.4); NEUT% 91.3 % (42.2-75.2); PLT 132 X1000 (130-400); RBC 3.46 XMIL (4.7-6.1)
[2017-06-20 07:13] LABS: BANDS 2 % (0-1); MONO 2 % (1-9)
[2017-06-20 07:15] LABS: HYPOCHROM 1+
[2017-06-20 07:16] LABS: LARGE PLATELETS 1+
[2017-06-20 07:21] LABS: POTASSIUM 4.5 mmol/L (3.5-5.1)
[2017-06-20] MEDS: VITAMIN D PO SCH (08:41)
[2017-06-20] MEDS: PREDNISONE PO SCH (08:41)
[2017-06-20] MEDS: ASPIRIN EC PO SCH (08:42)
[2017-06-20] MEDS: HUMALOG SUBQ SCH ×4 (08:42→22:24)
[2017-06-20] MEDS: LASIX PO SCH ×2 (08:42→22:24)
--- NOTE | 2017-06-20 17:20 | PROGRESS NOTE ---
DATE: 06/20/2017 SUBJECTIVE: Today, Mr. Elizondo refers to be doing a lot better. He said his breathing has significantly improved. According to Mr. Elizondo, he went to a football game with his grandson, and they had just freshly cut the grass. Since then, he started having some cough and shortness of breath, and this has been going on for the past one week, progressively getting worse, associated with some sputum production, so he came to the emergency department. OBJECTIVE: Vital Signs: Blood pressure 125/71, pulse of 78, respirations 18, temperature 97.7 degrees. General: Mr. Elizondo is a 61-year-old male. He is in bed, not in any distress. HEENT: Mucosa is pink and moist. Anicteric. Acyanotic. Neck: Supple. Positive 1+ JVD. Chest: Air entry is bilaterally reduced. A few bibasilar crepitations. There is also some distant expiratory wheezing. Cardiovascular: Regular rate and rhythm. Abdomen: Soft, nontender, slightly distended. Bowel sounds are present. Extremities: About 2+ pedal edema. Central Nervous System: Patient is awake, alert, and oriented x4. There is no focal neurological deficit. IMAGING DATA: Chest x-ray shows lungs are grossly clear. There is no pleural effusion or collection. There is stable cardiomegaly and stable implantable defibrillator/pacemaker. LABORATORY DATA: WBC is 4.93, hemoglobin is 10.3, platelet count of 132,000. Chemistry is also reviewed. Creatinine is 1.7, which is not new. ASSESSMENT: 1. Chronic obstructive pulmonary disease exacerbation. 2. [id number] congestive heart failure. Ejection fraction of 20-30%. 3. Pacemaker/automatic implanted cardioverter defibrillator. 4. Diabetes mellitus, stable. 5. Chronic kidney disease, stage 3B. 6. Paroxysmal atrial fibrillation. 7. Nicotine dependence. Patient has been counseled. PLAN: Mr. Elizondo is relatively stable. I think he has got chronic obstructive pulmonary disease exacerbation, with possibly mild congestive heart failure exacerbation as well. We will continue with his Lasix and other heart medications, and will also continue with adequate pulmonary toilette, nebulization antibiotics, and steroids. I anticipate that Mr. Elizondo will probably be able to be discharged within 24-48 hours. cc: Elian Hernandez MD
[2017-06-21] MEDS: DUONEB (A & A) INH SCH ×5 (03:53→21:15)
[2017-06-21] MEDS: HEPARIN SUBQ SCH ×3 (04:40→22:56)
[2017-06-21] MEDS: ZITHROMAX 500 MG/NS 500 MG/250 ML IVPB IV SCH (04:40)
[2017-06-21] MEDS: HUMALOG SUBQ SCH ×4 (06:00→22:56)
[2017-06-21] MEDS: PROTONIX PO SCH (06:00)
[2017-06-21] MEDS: VITAMIN D PO SCH (08:56)
[2017-06-21] MEDS: PREDNISONE PO SCH (08:56)
[2017-06-21] MEDS: LASIX PO SCH (08:56)
[2017-06-21] MEDS: ASPIRIN EC PO SCH (08:56)
[2017-06-21 09:19] LABS: BASO% 0.1 % (0.0-0.8); HEMATOCRIT 30.4 % (42.0-52.0); HEMOGLOBIN 10.3 g/dL (14.0-18.0); IMM GRAN# 0.02 X1000 (0.0-0.04); IMM GRAN% 0.2 % (0.0-0.5); LYMPH# 0.79 X1000 (1.2-3.4); LYMPH% 6.9 % (20.5-51.1); MANUAL DIFF NEEDED? YES; MCHC 33.9 g/dL (33-37); MCV 88.6 FL (81-99); MONO# 0.69 X1000 (0.11-0.59); MPV 12.1 FL (7.4-10.4); NEUT% 86.8 % (42.2-75.2); PLT 161 X1000 (130-400); RBC 3.43 XMIL (4.7-6.1)
[2017-06-21 09:24] LABS: CALCIUM 9.4 mg/dL (8.8-10.2); POTASSIUM 4.1 mmol/L (3.5-5.1)
[2017-06-21 12:03] LABS: LYMPHS 10 % (21-51); MONO 4 % (1-9)
--- NOTE | 2017-06-21 13:37 | PROGRESS NOTE ---
DATE: 06/21/2017 SUBJECTIVE: Today Mr. Elizondo refers to be doing better. He is still complaining of mild shortness of breath and cough. He has been placed on furosemide which I stopped and I started this patient today on some of his home medications including Entresto, metolazone, and Synthroid. Probably this patient can be discharged in 1 day if everything is okay. OBJECTIVE: Vital Signs: Temperature 98.4 degrees, pulse 96, respiratory rate 18, blood pressure 116/69, oxygen saturation 98 on room air. HEENT: Head normocephalic. No trauma. PERRLA. Neck: Supple. No JVD. No masses. Central trachea. Chest: Decreased breath sounds at the bases with mild rales at the bases as well. They are some distant expiatory wheezing. Cardiovascular: RRR. Abdomen: Soft, nontender, nondistended. No hepatosplenomegaly. Extremities: There is 1+ pedal edema. Neurological: The patient is alert and oriented x3. No focal neurological deficits. LABORATORY: WBC 11.4, hemoglobin 10.3, hematocrit 30.4, platelets 161,000. Sodium 138, potassium 4.1, chloride 100, bicarbonate 25, BUN 37, creatinine 1.8, glucose 123, calcium 9.4. ASSESSMENT AND PLAN: 1. Chronic obstructive pulmonary disease exacerbation. This patient is much better. For now we will continue with the same management. He is getting steroids p.o. This patient has been highly advised to quit smoking. He states that he has been smoking for over 40 years and it is very hard to do that. 2. Acute on chronic congestive heart failure. Ejection fraction is around 20 to 30%. I have stopped the furosemide and I placed this patient back on metolazone and Entresto. Will monitor this patient for 1 more day and I believe if this patient is doing okay/better tomorrow, he can be discharged home. He has an appointment with Dr. Muro from cardiology department next Thursday. 3. Hypothyroidism. I have placed this patient back on his levothyroxine. 4. Type 2 diabetes. Stable. Continue with the same management. 5. Chronic kidney disease stage 3B, stable. Continue with the same management. 6. Paroxysmal atrial fibrillation. Continue with the same treatment. 7. Nicotine dependence. This patient has been highly advised to stop smoking. I will continue with daily cessation education. 8. Overall this patient is doing much better. I have stopped the furosemide and I put this patient back on Entresto and metolazone. Also I restarted his Synthroid. I do believe if this patient is doing better by tomorrow he can be discharged. cc: Landon Corrales MD
[2017-06-21] MEDS: ENTRESTO 24 MG-26 MG TABLET PO SCH (22:56)
[2017-06-22] MEDS: DUONEB (A & A) INH SCH ×2 (03:37→11:35)
[2017-06-22] MEDS: ZITHROMAX 500 MG/NS 500 MG/250 ML IVPB IV SCH (05:56)
[2017-06-22] MEDS: HEPARIN SUBQ SCH ×2 (05:59→12:48)
[2017-06-22] MEDS: PROTONIX PO SCH (06:00)
[2017-06-22] MEDS: HUMALOG SUBQ SCH ×2 (06:02→11:13)
--- NOTE | 2017-06-22 06:27 | EKG Report ---
Test Performed on : 06/19/2017 4:50:38 PM Test Reason : reordered/cp Blood Pressure : / mmHG Vent. Rate : 081 BPM Atrial Rate : 081 BPM P-R Int : 124 ms QRS Dur : 156 ms QT Int : 452 ms P-R-T Axes : 150 -48 130 degrees QTc Int : 525 ms Unusual P axis, possible ectopic atrial rhythm. Left axis deviation Nonspecific intraventricular block Inferior infarct , age undetermined Possible Anterolateral infarct , age undetermined Abnormal ECG When compared with ECG of 15-JAN-2017 13:22, Ectopic atrial rhythm. has replaced Electronic ventricular pacemaker Unconfirmed Result
[2017-06-22 06:30] LABS: MANUAL DIFF NEEDED? NO
[2017-06-22 06:44] LABS: BASO% 0.1 % (0.0-0.8); HEMATOCRIT 29.5 % (42.0-52.0); HEMOGLOBIN 9.9 g/dL (14.0-18.0); IMM GRAN# 0.02 X1000 (0.0-0.04); IMM GRAN% 0.2 % (0.0-0.5); LYMPH# 0.89 X1000 (1.2-3.4); LYMPH% 10.1 % (20.5-51.1); MCH 29.9 PG (27-31); MCHC 33.6 g/dL (33-37); MCV 89.1 FL (81-99); MONO# 0.59 X1000 (0.11-0.59); MONO% 6.7 % (1.7-9.3); NEUT% 82.9 % (42.2-75.2); PLT 145 X1000 (130-400); RBC 3.31 XMIL (4.7-6.1)
[2017-06-22] MEDS ORDERED: SYNTHROID PO SCH (07:00)
[2017-06-22 07:05] LABS: CALCIUM 9.2 mg/dL (8.8-10.2); POTASSIUM 3.9 mmol/L (3.5-5.1)
[2017-06-22] MEDS: PREDNISONE PO SCH (08:31)
[2017-06-22] MEDS: ASPIRIN EC PO SCH (08:31)
[2017-06-22] MEDS: VITAMIN D PO SCH (08:31)
[2017-06-22] MEDS: ENTRESTO 24 MG-26 MG TABLET PO SCH (08:31)
[2017-06-22] MEDS ORDERED: ZAROXOLYN PO SCH (09:00)
[2017-06-22 17:26] VITALS: BP 120/74
--- NOTE | 2017-06-23 12:35 | DISCHARGE SUMMARY ---
ADMISSION DATE: 06/19/2017 DISCHARGE DATE: 06/22/2017 ADMISSION DIAGNOSES: 1. Shortness of breath. 2. Congestive heart failure exacerbation. 3. Chronic obstructive pulmonary disease exacerbation. 4. Acute congestive heart failure exacerbation. 5. Hypothyroidism. 6. Type 2 diabetes. 7. Chronic renal failure stage 3b. 8. Paroxysmal atrial fibrillation DISCHARGE DIAGNOSES: 1. Shortness of breath. 2. Congestive heart failure exacerbation. 3. Chronic obstructive pulmonary disease exacerbation. 4. Acute congestive heart failure exacerbation. 5. Hypothyroidism. 6. Type 2 diabetes. 7. Chronic renal failure stage 3b. 8. Paroxysmal atrial fibrillation CONSULTATIONS: None. HISTORY: Briefly this is a 61-year-old male presenting with shortness of breath. Creatinine around 1.5. He had COPD on admission. Chest x-ray really just showed COPD changes. He was placed on steroids and did not clinically have infection so no empiric antibiotics were started. The EF was 20-30%. Echo was pursued. He was given Lasix and he slowly clinically improved. I do not think he ended up getting a Cardiology consult. It is felt to be more of a COPD exacerbation. By the he was clinically stable. He was on room air and 99%. Heart rate 92, respiratory rate of 18. Blood pressure 114/74, his breath sounds were clear. No wheezing. Dr. Pan had put him back on his Entresto and metolazone the day before. No Lasix, and he seems to be doing okay. DISCHARGE MEDICATIONS: 1. Aspirin 81 daily. 2. Vitamin D3, 2000 units daily. 3. Vitamin B12 1000 mcg daily. 4. Aspartate 18 at bedtime 20 in the morning. 5. Atrovent q.i.d. 6. Synthroid 25 daily. 7. Metformin 1 g b.i.d. 8. Metolazone 2.5 daily. 9. Nitroglycerin 0.4 daily. 10. Prednisone 20 mg daily for 5 days. 11. Entresto / daily. Hopefully he will not need further diuretics. TIME SPENT ON DISCHARGE: 32 minute discharge. cc: Last German MD
== END 2017-06-22 17:27 | disposition home or self-care (01) ==
LOC: ED 16:35 → SUATTDRO 22:39 → 3N 22:39
PROVIDERS: ATTEND Internal Medicine